=== PATIENT | male | born 1990 | race Caucasian/White ===

== ENCOUNTER → 2016-05-09 | Outpatient (CLI) | payer BC ==
--- NOTE | 2016-05-09 14:20 | DI ---
Indication: ITS.REASON: M25.562 PAIN IN LEFT KNEE PROCEDURE: MRI KNEE LEFT W/O CONTRAST: Encounter: Initial Comparison: None Technique: Multiplanar multisequence MR imaging of the left knee was performed without contrast. Findings: The lateral meniscus is normal. Medial meniscus is normal. The ACL and PCL are intact. The MCL and lateral collateral ligament complex are intact. The extensor mechanism is normal. No acute fracture. Metallic artifact from tibial hardware. The cartilage of the medial and lateral compartments is normal. There is a focal area of cartilage fissuring seen in the medial facet of the patella without underlying subchondral edema. No joint effusion or Gonzalez's cyst. Muscular signal intensity is normal. Impression: Small cartilage fissure in the medial patella. Otherwise negative exam. .
== END ==
LOC: IMA 12:49
PROVIDERS: ATTEND Physician Assistant
DX: M94.8X6 Other specified disorders of cartilage, lower leg (principal); M25.562 Pain in left knee